=== PATIENT | female | born 1950 | race Asian ===

== ENCOUNTER 2023-08-08 16:52 | Inpatient (IN) | payer MEDICARE, OTHER ==
[~2023-08-08] VITALS: Ht 154.9 cm; Wt 77.1 kg
[2023-08-08 18:50] LABS: BASOPHILS # (AUTO) 0.1 K/uL (0.0-0.2); BASOPHILS % (AUTO) 0.8 % (0.0-2.0); EOSINOPHILS # (AUTO) 0.2 K/uL (0.0-0.7); EOSINOPHILS % (AUTO) 1.6 % (0.0-6.0); HEMATOCRIT 34 % (33-45); LYMPHOCYTES # (AUTO) 1.6 K/uL (0.8-4.8); LYMPHOCYTES % (AUTO) 16.5 % (20.0-44.0); MEAN CORPUSCULAR HEMOGLOBIN 28 PG (26.0-33.0); MEAN CORPUSCULAR HGB CONC 33 g/dl (31.0-36.0); MEAN CORPUSCULAR VOLUME 86 fL (82-100); MONOCYTES # (AUTO) 0.7 K/uL (0.1-1.30); MONOCYTES % (AUTO) 7.2 % (2.0-12.0); NEUTROPHILS # (AUTO) 7.3 K/uL (1.8-8.9); NEUTROPHILS % (AUTO) 73.9 % (43.0-81.0); PLATELET COUNT (AUTO) 344 K/uL (150-450); RED BLOOD CELL COUNT(AUTO) 3.92 MIL/uL (4.0-5.2); RED CELL DISTRIBUTION WIDTH 13.4 % (11.5-15.0); WHITE BLOOD COUNT (AUTO) 9.9 K/uL (4.3-11.0)
[2023-08-08 19:10] LABS: ALANINE AMINOTRANSFERASE 27 U/L (12-78); ALBUMIN 3.2 g/dL (3.4-5.0); ALKALINE PHOSPHATASE 83 U/L (46-116); ASPARTATE AMINOTRANSFERASE 27 U/L (15-37); BILIRUBIN,DIRECT 0.1 mg/dL (0.0-0.2); BILIRUBIN,TOTAL 0.3 mg/dL (0.2-1.0); CARBON DIOXIDE 27 mmol/L (21-32); CHLORIDE 102 mmol/L (98-107); CREATININE 2.1 mg/dL (0.6-1.3); GLUCOSE 114 mg/dL (74-106); POTASSIUM 4.5 mmol/L (3.5-5.1); SODIUM SERUM 137 mmol/L (136-145); TOTAL PROTEIN, SERUM 7.4 g/dL (6.4-8.2); UREA NITROGEN, BLOOD 38 mg/dL (7-18)
[2023-08-08 19:12] LABS: ACETAMINOPHEN 0 ug/ml (10-30); ALCOHOL, BLOOD < 3 mg/dL (0-10)
[2023-08-08 21:36] LABS: APPEARANCE,URINE SLIGHTLY CLOUDY (CLEAR); BILIRUBIN,URINE NEGATIVE (NEGATIVE); BLOOD, URINE TRACE-INTA Ery/uL (NEGATIVE); COLOR,URINE YELLOW (YELLOW); KETONES,URINE NEGATIVE (NEGATIVE); LEUKOCYTE ESTERASE ,URINE 3+ (NEGATIVE); NITRITE, URINE NEGATIVE (NEGATIVE); PROTEIN,URINE NEGATIVE (NEGATIVE); UGLUCOSE NEGATIVE (NEGATIVE); UROBILINOGEN,URINE 0.2 EU/dL (0.2)
[2023-08-08 21:54] LABS: AMPHETAMINE, URINE NEGATIVE (NEGATIVE); BARBITURATE, URINE NEGATIVE (NEGATIVE); BENZODIAZEPINE, URINE NEGATIVE (NEGATIVE); CANNABINOID, URINE NEGATIVE (NEGATIVE); COCCAINE, URINE NEGATIVE (NEGATIVE); OPIATE, URINE NEGATIVE (NEGATIVE); PHENCYCLIDINE SCREEN,URINE NEGATIVE (NEGATIVE)
[2023-08-08 21:59] LABS: ADD URINE CULTURE YES; BACTERIA,URINE 2+ /HPF (None Seen); WBC,URINE 21-50 /HPF (0-3)
[2023-08-09] MEDS ORDERED: ATOR20TA PO (00:52)
[2023-08-09] MEDS ORDERED: DONE10TA11 PO (00:52)
[2023-08-09] MEDS ORDERED: MAGN200T5 PO (00:52)
[2023-08-09] MEDS ORDERED: QUET100T PO (00:52)
[2023-08-09] MEDS ORDERED: AMLO5TAB4 PO (00:52)
[2023-08-09] MEDS ORDERED: LOSA50TA39 PO (00:52)
[2023-08-09] MEDS ORDERED: GLIP5TAB13 PO (00:52)
[2023-08-09] MEDS ORDERED: CLOP75TA15 PO (00:52)
[2023-08-09] MEDS ORDERED: METO-357 PO (00:52)
[2023-08-09] MEDS ORDERED: LORAZEPAM 0.5 MG TABLET PO PRN ×2 (01:00→10:30)
[2023-08-09] MEDS ORDERED: MAG HYDROX/AL HYDROX/SIMETH 30 ML UDC PO PRN (01:00)
[2023-08-09] MEDS ORDERED: MAGNESIUM HYDROXIDE 30 ML UDC PO PRN (01:00)
[2023-08-09] MEDS ORDERED: ZOLPIDEM TARTRATE 5 MG TABLET PO PRN (01:00)
[2023-08-09] MEDS ORDERED: BLOOD SUGAR DIAGNOSTIC 1 EACH STRIP IN ONE (01:00)
[2023-08-09 01:31] VITALS: BP 132/71; TEMP 99; O2SAT 99
[2023-08-09 07:36] LABS: CREATININE 1.9 mg/dL (0.6-1.3)
[2023-08-09 07:41] LABS: CHOLESTEROL 132 mg/dL (<200); HDL CHOLESTEROL 53 mg/dL (40-60); LDL 67 mg/dL (0-99); TRIGLYCERIDES 109 mg/dL (30-150)
[2023-08-09 08:00] VITALS: BP 119/55; TEMP 97.9; O2SAT 99
[2023-08-09] MEDS ORDERED: MULT-24 PO (08:18)
[2023-08-09] MEDS ORDERED: ACET-2605 PO (08:18)
[2023-08-09] MEDS ORDERED: ACET-868 PO (08:18)
[2023-08-09] MEDS ORDERED: LACT10SO3 PO (08:18)
[2023-08-09] MEDS ORDERED: GLUC1KIT IM (08:18)
[2023-08-09] MEDS: OLANZAPINE 5 MG TABLET PO SCH ×2 (10:30→16:14)
[2023-08-09] MEDS: DIVALPROEX SODIUM 125 MG CAP.SPRINK PO SCH ×2 (10:30→21:00)
[2023-08-09] MEDS: CEPHALEXIN MONOHYDRATE 250 MG CAPSULE PO SCH ×2 (12:46→21:00)
[2023-08-09] MEDS ORDERED: OLANZAPINE 10 MG VIAL IM STA (14:56)
[2023-08-09 16:00] VITALS: BP 138/75; TEMP 98.6; O2SAT 99
[2023-08-09] MEDS ORDERED: MAGNESIUM OXIDE 400 MG TABLET PO SCH (17:00)
[2023-08-09 20:38] VITALS: BP 129/69; TEMP 98.1; O2SAT 100
[2023-08-09] MEDS: DONEPEZIL 5 MG TABLET PO SCH (21:39)
[2023-08-09] MEDS: ATORVASTATIN 10 MG TABLET PO SCH (21:39)
[2023-08-10] MEDS: CEPHALEXIN MONOHYDRATE 250 MG CAPSULE PO SCH ×3 (05:00→20:46)
[2023-08-10 08:00] VITALS: BP 145/57; TEMP 97.8; O2SAT 97
[2023-08-10] MEDS ORDERED: DONEPEZIL 5 MG TABLET PO SCH (09:00)
[2023-08-10] MEDS: MULTIVITAMINS,THERAGRAN 1 UDTAB TABLET PO SCH (09:11)
[2023-08-10] MEDS: glipiZIDE 5 MG TABLET PO SCH (09:11)
[2023-08-10] MEDS: CLOPIDOGREL BISULFATE 75 MG TABLET PO SCH (09:11)
[2023-08-10] MEDS: DIVALPROEX SODIUM 125 MG CAP.SPRINK PO SCH ×2 (09:11→20:46)
[2023-08-10] MEDS: LACTULOSE 10 G/15 ML UDC (PYXIS) PO SCH (09:11)
[2023-08-10 09:12] VITALS: BP 114/62
[2023-08-10] MEDS: METOPROLOL SUCCINATE 50 MG TAB.SR.24H PO SCH (09:12)
[2023-08-10] MEDS: OLANZAPINE 5 MG TABLET PO SCH ×2 (09:12→16:28)
[2023-08-10] MEDS: AMLODIPINE BESYLATE 5 MG TABLET PO SCH (09:12)
[2023-08-10 16:00] VITALS: BP 140/68; TEMP 97.8; O2SAT 96
[2023-08-10 20:00] VITALS: BP 138/61; TEMP 97.5; O2SAT 97
[2023-08-10] MEDS: DONEPEZIL 5 MG TABLET PO SCH (21:16)
[2023-08-10] MEDS: ATORVASTATIN 10 MG TABLET PO SCH (21:17)
[2023-08-11] MEDS: CEPHALEXIN MONOHYDRATE 250 MG CAPSULE PO SCH ×3 (06:04→20:47)
[2023-08-11 08:00] VITALS: BP 125/63; TEMP 98; O2SAT 95
[2023-08-11] MEDS: LACTULOSE 10 G/15 ML UDC (PYXIS) PO SCH (09:11)
[2023-08-11] MEDS: CLOPIDOGREL BISULFATE 75 MG TABLET PO SCH (09:11)
[2023-08-11] MEDS: OLANZAPINE 5 MG TABLET PO SCH ×2 (09:11→17:15)
[2023-08-11] MEDS: glipiZIDE 5 MG TABLET PO SCH (09:11)
[2023-08-11] MEDS: METOPROLOL SUCCINATE 50 MG TAB.SR.24H PO SCH (09:13)
[2023-08-11] MEDS: DIVALPROEX SODIUM 125 MG CAP.SPRINK PO SCH ×2 (09:13→20:47)
[2023-08-11] MEDS: MULTIVITAMINS,THERAGRAN 1 UDTAB TABLET PO SCH (09:13)
[2023-08-11] MEDS: AMLODIPINE BESYLATE 5 MG TABLET PO SCH (09:14)
[2023-08-11 12:01] LABS: BASOPHILS % (AUTO) 0.5 % (0.0-2.0); EOSINOPHILS # (AUTO) 0.2 K/uL (0.0-0.7); EOSINOPHILS % (AUTO) 2.3 % (0.0-6.0); HEMATOCRIT 36 % (33-45); HEMOGLOBIN 11.9 g/dL (11.5-14.8); LYMPHOCYTES # (AUTO) 1.4 K/uL (0.8-4.8); LYMPHOCYTES % (AUTO) 18.1 % (20.0-44.0); MEAN CORPUSCULAR HEMOGLOBIN 28 PG (26.0-33.0); MEAN CORPUSCULAR HGB CONC 33 g/dl (31.0-36.0); MEAN CORPUSCULAR VOLUME 86 fL (82-100); MONOCYTES # (AUTO) 0.4 K/uL (0.1-1.30); NEUTROPHILS # (AUTO) 5.5 K/uL (1.8-8.9); NEUTROPHILS % (AUTO) 73.1 % (43.0-81.0); PLATELET COUNT (AUTO) 368 K/uL (150-450); RED BLOOD CELL COUNT(AUTO) 4.21 MIL/uL (4.0-5.2); RED CELL DISTRIBUTION WIDTH 12.9 % (11.5-15.0); WHITE BLOOD COUNT (AUTO) 7.5 K/uL (4.3-11.0)
[2023-08-11 12:07] LABS: ALANINE AMINOTRANSFERASE 18 U/L (12-78); ALBUMIN 3.3 g/dL (3.4-5.0); ALKALINE PHOSPHATASE 92 U/L (46-116); ASPARTATE AMINOTRANSFERASE 16 U/L (15-37); BILIRUBIN,TOTAL 0.4 mg/dL (0.2-1.0); CALCIUM, SERUM 8.9 mg/dL (8.5-10.1); CARBON DIOXIDE 26 mmol/L (21-32); CHLORIDE 102 mmol/L (98-107); CREATININE 1.8 mg/dL (0.6-1.3); GLUCOSE 124 mg/dL (74-106); MAGNESIUM 2.1 mg/dL (1.8-2.4); POTASSIUM 4.5 mmol/L (3.5-5.1); SODIUM SERUM 135 mmol/L (136-145); TOTAL PROTEIN, SERUM 7.8 g/dL (6.4-8.2); UREA NITROGEN, BLOOD 37 mg/dL (7-18)
[2023-08-11 12:08] LABS: CREATINE KINASE, TOTAL 128 U/L (26-192)
[2023-08-11 16:00] VITALS: BP_SYST 112; BP_SYST 155; BP_DIAS 65; BP_DIAS 67; TEMP 97.6; TEMP 98; O2SAT 97; O2SAT 99
[2023-08-11] MEDS: ATORVASTATIN 10 MG TABLET PO SCH (21:12)
[2023-08-11] MEDS: DONEPEZIL 5 MG TABLET PO SCH (21:13)
[2023-08-12] MEDS: CEPHALEXIN MONOHYDRATE 250 MG CAPSULE PO SCH ×3 (05:48→21:16)
[2023-08-12 06:06] LABS: PTH, INTACT 6 pg/mL (15-65)
[2023-08-12 08:00] VITALS: BP 145/67; TEMP 97.8; O2SAT 98
[2023-08-12] MEDS: MULTIVITAMINS,THERAGRAN 1 UDTAB TABLET PO SCH (09:07)
[2023-08-12] MEDS: DIVALPROEX SODIUM 125 MG CAP.SPRINK PO SCH ×2 (09:07→21:16)
[2023-08-12] MEDS: LACTULOSE 10 G/15 ML UDC (PYXIS) PO SCH (09:07)
[2023-08-12] MEDS: OLANZAPINE 5 MG TABLET PO SCH ×2 (09:07→17:04)
[2023-08-12] MEDS: glipiZIDE 5 MG TABLET PO SCH (09:07)
[2023-08-12] MEDS: METOPROLOL SUCCINATE 50 MG TAB.SR.24H PO SCH (09:08)
[2023-08-12] MEDS: CLOPIDOGREL BISULFATE 75 MG TABLET PO SCH (09:08)
[2023-08-12] MEDS: AMLODIPINE BESYLATE 5 MG TABLET PO SCH (09:08)
[2023-08-12 16:00] VITALS: BP 127/64; TEMP 98; O2SAT 100
[2023-08-12 20:12] VITALS: BP 132/56; TEMP 98.8; O2SAT 99
[2023-08-12] MEDS: ATORVASTATIN 10 MG TABLET PO SCH (21:17)
[2023-08-12] MEDS: DONEPEZIL 5 MG TABLET PO SCH (21:17)
[2023-08-13] MEDS: CEPHALEXIN MONOHYDRATE 250 MG CAPSULE PO SCH ×3 (05:17→20:19)
[2023-08-13 08:00] VITALS: BP 142/62; TEMP 97.8; O2SAT 100
[2023-08-13] MEDS: MULTIVITAMINS,THERAGRAN 1 UDTAB TABLET PO SCH (09:20)
[2023-08-13] MEDS: LACTULOSE 10 G/15 ML UDC (PYXIS) PO SCH (09:20)
[2023-08-13] MEDS: OLANZAPINE 5 MG TABLET PO SCH ×2 (09:20→17:24)
[2023-08-13] MEDS: DIVALPROEX SODIUM 125 MG CAP.SPRINK PO SCH ×2 (09:20→20:19)
[2023-08-13] MEDS: CLOPIDOGREL BISULFATE 75 MG TABLET PO SCH (09:20)
[2023-08-13] MEDS: glipiZIDE 5 MG TABLET PO SCH (09:20)
[2023-08-13] MEDS: AMLODIPINE BESYLATE 5 MG TABLET PO SCH (09:20)
[2023-08-13] MEDS: METOPROLOL SUCCINATE 50 MG TAB.SR.24H PO SCH (09:21)
[2023-08-13 16:00] VITALS: BP 145/68; TEMP 97.8; O2SAT 99
[2023-08-13 20:46] VITALS: BP 138/68; TEMP 97.9; O2SAT 97
[2023-08-13] MEDS: DONEPEZIL 5 MG TABLET PO SCH (21:26)
[2023-08-13] MEDS: ATORVASTATIN 10 MG TABLET PO SCH (21:26)
[2023-08-14] MEDS: CEPHALEXIN MONOHYDRATE 250 MG CAPSULE PO SCH ×2 (05:15→12:29)
[2023-08-14 08:00] VITALS: BP 137/58; TEMP 97.7; O2SAT 98
[2023-08-14] MEDS: glipiZIDE 5 MG TABLET PO SCH (09:11)
[2023-08-14] MEDS: OLANZAPINE 5 MG TABLET PO SCH ×2 (09:11→16:07)
[2023-08-14] MEDS: MULTIVITAMINS,THERAGRAN 1 UDTAB TABLET PO SCH (09:11)
[2023-08-14] MEDS: LACTULOSE 10 G/15 ML UDC (PYXIS) PO SCH (09:11)
[2023-08-14] MEDS: DIVALPROEX SODIUM 125 MG CAP.SPRINK PO SCH ×2 (09:11→20:21)
[2023-08-14] MEDS: CLOPIDOGREL BISULFATE 75 MG TABLET PO SCH (09:11)
[2023-08-14] MEDS: AMLODIPINE BESYLATE 5 MG TABLET PO SCH (09:12)
[2023-08-14] MEDS: METOPROLOL SUCCINATE 50 MG TAB.SR.24H PO SCH (09:12)
[2023-08-14 11:06] LABS: *SPE A/G RATIO 0.8 (0.7-1.7); *SPE ALBUMIN 3.3 g/dL (2.9-4.4); *SPE ALPHA-1-GLOBULIN 0.2 g/dL (0.0-0.4); *SPE ALPHA-2-GLOBULIN 0.9 g/dL (0.4-1.0); *SPE GLOBULIN, TOTAL 3.9 g/dL (2.2-3.9); *SPE M-SPIKE Not Observed g/dL (Not Observed); *SPE PROTEIN TOTAL 7.2 g/dL (6.0-8.5); *SPEGAMMA GLOBULIN 1.8 g/dL (0.4-1.8)
[2023-08-14 16:00] VITALS: BP 108/55; TEMP 97.7; O2SAT 99
[2023-08-14] MEDS: ACETAMINOPHEN 325 MG TABLET PO PRN (16:39)
[2023-08-14] MEDS ORDERED: GUAIFENESIN/D-METHORPHAN HB 5 ML UDC PO PRN (17:30)
[2023-08-14 20:45] VITALS: BP 111/54; TEMP 98.4; O2SAT 99
[2023-08-14] MEDS: DONEPEZIL 5 MG TABLET PO SCH (21:41)
[2023-08-14] MEDS: ATORVASTATIN 10 MG TABLET PO SCH (21:41)
[2023-08-15 07:40] LABS: HEMOGLOBIN 11.8 g/dL (11.5-14.8); WHITE BLOOD COUNT (AUTO) 8.5 K/uL (4.3-11.0)
[2023-08-15 07:41] LABS: BASOPHILS % (AUTO) 0.5 % (0.0-2.0); EOSINOPHILS # (AUTO) 0.4 K/uL (0.0-0.7); EOSINOPHILS % (AUTO) 4.5 % (0.0-6.0); HEMATOCRIT 36 % (33-45); LYMPHOCYTES # (AUTO) 1.4 K/uL (0.8-4.8); LYMPHOCYTES % (AUTO) 16.9 % (20.0-44.0); MEAN CORPUSCULAR HEMOGLOBIN 28 PG (26.0-33.0); MEAN CORPUSCULAR HGB CONC 33 g/dl (31.0-36.0); MEAN CORPUSCULAR VOLUME 86 fL (82-100); MONOCYTES # (AUTO) 0.8 K/uL (0.1-1.30); NEUTROPHILS # (AUTO) 5.9 K/uL (1.8-8.9); NEUTROPHILS % (AUTO) 69.1 % (43.0-81.0); PLATELET COUNT (AUTO) 342 K/uL (150-450); RED CELL DISTRIBUTION WIDTH 13.1 % (11.5-15.0)
[2023-08-15 07:58] LABS: CALCIUM, SERUM 8.7 mg/dL (8.5-10.1); CARBON DIOXIDE 26 mmol/L (21-32); CHLORIDE 103 mmol/L (98-107); CREATININE 1.9 mg/dL (0.6-1.3); GLUCOSE 105 mg/dL (74-106); MAGNESIUM 2.3 mg/dL (1.8-2.4); PHOSPHORUS 3.9 mg/dL (2.5-4.9); POTASSIUM 4.3 mmol/L (3.5-5.1); SODIUM SERUM 138 mmol/L (136-145); UREA NITROGEN, BLOOD 43 mg/dL (7-18)
[2023-08-15 08:00] VITALS: BP 117/59; TEMP 97.7; O2SAT 100
[2023-08-15] MEDS: LACTULOSE 10 G/15 ML UDC (PYXIS) PO SCH (09:03)
[2023-08-15] MEDS: OLANZAPINE 5 MG TABLET PO SCH ×2 (09:03→17:21)
[2023-08-15] MEDS: DIVALPROEX SODIUM 125 MG CAP.SPRINK PO SCH ×2 (09:03→21:40)
[2023-08-15] MEDS: CLOPIDOGREL BISULFATE 75 MG TABLET PO SCH (09:04)
[2023-08-15] MEDS: glipiZIDE 5 MG TABLET PO SCH (09:04)
[2023-08-15] MEDS: AMLODIPINE BESYLATE 5 MG TABLET PO SCH (09:04)
[2023-08-15] MEDS: METOPROLOL SUCCINATE 50 MG TAB.SR.24H PO SCH (09:05)
[2023-08-15] MEDS: MULTIVITAMINS,THERAGRAN 1 UDTAB TABLET PO SCH (09:06)
[2023-08-15 16:08] VITALS: BP 113/56; TEMP 97.7; O2SAT 99
[2023-08-15 21:36] VITALS: BP 128/56; TEMP 99.1; O2SAT 98
[2023-08-15] MEDS: DONEPEZIL 5 MG TABLET PO SCH (21:40)
[2023-08-15] MEDS: ATORVASTATIN 10 MG TABLET PO SCH (21:40)
[2023-08-16 08:00] VITALS: BP 118/56; TEMP 97.9; O2SAT 100
[2023-08-16] MEDS: CLOPIDOGREL BISULFATE 75 MG TABLET PO SCH (10:10)
[2023-08-16] MEDS: LACTULOSE 10 G/15 ML UDC (PYXIS) PO SCH (10:10)
[2023-08-16] MEDS: glipiZIDE 5 MG TABLET PO SCH (10:11)
[2023-08-16] MEDS: MULTIVITAMINS,THERAGRAN 1 UDTAB TABLET PO SCH (10:11)
[2023-08-16] MEDS: DIVALPROEX SODIUM 125 MG CAP.SPRINK PO SCH ×2 (10:12→21:10)
[2023-08-16] MEDS: AMLODIPINE BESYLATE 5 MG TABLET PO SCH (10:12)
[2023-08-16] MEDS: OLANZAPINE 5 MG TABLET PO SCH ×2 (10:12→17:40)
[2023-08-16] MEDS: METOPROLOL SUCCINATE 50 MG TAB.SR.24H PO SCH (10:12)
[2023-08-16 16:00] VITALS: BP 107/61; TEMP 98.7; O2SAT 100
[2023-08-16 20:27] VITALS: BP 112/65; TEMP 98.1; O2SAT 96
[2023-08-16] MEDS: DONEPEZIL 5 MG TABLET PO SCH (21:09)
[2023-08-16] MEDS: ATORVASTATIN 10 MG TABLET PO SCH (21:10)
[2023-08-16] MEDS: ACETAMINOPHEN 325 MG TABLET PO PRN (21:22)
[2023-08-17 08:00] VITALS: BP 130/60; TEMP 97.9; O2SAT 98
[2023-08-17] MEDS: LACTULOSE 10 G/15 ML UDC (PYXIS) PO SCH (08:56)
[2023-08-17] MEDS: DIVALPROEX SODIUM 125 MG CAP.SPRINK PO SCH ×2 (08:56→21:06)
[2023-08-17] MEDS: CLOPIDOGREL BISULFATE 75 MG TABLET PO SCH (08:56)
[2023-08-17] MEDS: glipiZIDE 5 MG TABLET PO SCH (08:56)
[2023-08-17] MEDS: MULTIVITAMINS,THERAGRAN 1 UDTAB TABLET PO SCH (08:56)
[2023-08-17] MEDS: OLANZAPINE 5 MG TABLET PO SCH ×2 (08:56→16:40)
[2023-08-17] MEDS: AMLODIPINE BESYLATE 5 MG TABLET PO SCH (08:57)
[2023-08-17] MEDS: METOPROLOL SUCCINATE 50 MG TAB.SR.24H PO SCH (08:57)
[2023-08-17 16:00] VITALS: BP 128/61; TEMP 97.9; O2SAT 96
[2023-08-17 20:00] VITALS: BP 125/74; TEMP 98.4; O2SAT 99
[2023-08-17] MEDS: NITROFURANTOIN/MONOHYDRATE MACROCRYSTALS 100 MG CAPSULE PO SCH (21:05)
[2023-08-17 22:00] VITALS: BP 125/74
[2023-08-17] MEDS: ATORVASTATIN 10 MG TABLET PO SCH (22:00)
[2023-08-17] MEDS: DONEPEZIL 5 MG TABLET PO SCH (22:00)
[2023-08-18 07:14] LABS: BASOPHILS % (AUTO) 0.7 % (0.0-2.0); EOSINOPHILS # (AUTO) 0.3 K/uL (0.0-0.7); EOSINOPHILS % (AUTO) 5.4 % (0.0-6.0); HEMATOCRIT 34 % (33-45); HEMOGLOBIN 11.1 g/dL (11.5-14.8); LYMPHOCYTES # (AUTO) 1.6 K/uL (0.8-4.8); LYMPHOCYTES % (AUTO) 25.4 % (20.0-44.0); MEAN CORPUSCULAR HEMOGLOBIN 28 PG (26.0-33.0); MEAN CORPUSCULAR HGB CONC 33 g/dl (31.0-36.0); MEAN CORPUSCULAR VOLUME 86 fL (82-100); MONOCYTES # (AUTO) 0.5 K/uL (0.1-1.30); MONOCYTES % (AUTO) 7.7 % (2.0-12.0); NEUTROPHILS # (AUTO) 3.8 K/uL (1.8-8.9); NEUTROPHILS % (AUTO) 60.8 % (43.0-81.0); PLATELET COUNT (AUTO) 336 K/uL (150-450); RED BLOOD CELL COUNT(AUTO) 3.92 MIL/uL (4.0-5.2); WHITE BLOOD COUNT (AUTO) 6.2 K/uL (4.3-11.0)
[2023-08-18 07:32] LABS: ALANINE AMINOTRANSFERASE 19 U/L (12-78); ALKALINE PHOSPHATASE 76 U/L (46-116); ASPARTATE AMINOTRANSFERASE 14 U/L (15-37); BILIRUBIN,TOTAL 0.3 mg/dL (0.2-1.0); CALCIUM, SERUM 8.7 mg/dL (8.5-10.1); CARBON DIOXIDE 26 mmol/L (21-32); CHLORIDE 106 mmol/L (98-107); CREATININE 1.9 mg/dL (0.6-1.3); GLUCOSE 107 mg/dL (74-106); MAGNESIUM 2.2 mg/dL (1.8-2.4); PHOSPHORUS 3.5 mg/dL (2.5-4.9); SODIUM SERUM 141 mmol/L (136-145); TOTAL PROTEIN, SERUM 7.4 g/dL (6.4-8.2); UREA NITROGEN, BLOOD 39 mg/dL (7-18)
[2023-08-18 08:00] VITALS: BP 135/66; TEMP 97.7; O2SAT 96
[2023-08-18] MEDS: MULTIVITAMINS,THERAGRAN 1 UDTAB TABLET PO SCH (08:47)
[2023-08-18] MEDS: OLANZAPINE 5 MG TABLET PO SCH ×2 (08:47→16:29)
[2023-08-18] MEDS: DIVALPROEX SODIUM 125 MG CAP.SPRINK PO SCH ×2 (08:47→21:32)
[2023-08-18] MEDS: LACTULOSE 10 G/15 ML UDC (PYXIS) PO SCH (08:47)
[2023-08-18] MEDS: glipiZIDE 5 MG TABLET PO SCH (08:47)
[2023-08-18] MEDS: NITROFURANTOIN/MONOHYDRATE MACROCRYSTALS 100 MG CAPSULE PO SCH ×2 (08:48→21:32)
[2023-08-18] MEDS: CLOPIDOGREL BISULFATE 75 MG TABLET PO SCH (08:48)
[2023-08-18] MEDS: AMLODIPINE BESYLATE 5 MG TABLET PO SCH (08:50)
[2023-08-18] MEDS: METOPROLOL SUCCINATE 50 MG TAB.SR.24H PO SCH (08:50)
[2023-08-18] MEDS ORDERED: AMOX/CLAVULANATE 250 MG TABLET PO SCH (09:00)
[2023-08-18 16:00] VITALS: BP 132/64; TEMP 98.1; O2SAT 100
[2023-08-18 20:00] VITALS: BP 130/76; TEMP 98; O2SAT 99
[2023-08-18 22:00] VITALS: BP 130/76
[2023-08-18] MEDS: DONEPEZIL 5 MG TABLET PO SCH (22:37)
[2023-08-18] MEDS: ATORVASTATIN 10 MG TABLET PO SCH (22:37)
[2023-08-19 08:00] VITALS: BP 131/81; TEMP 97.6; O2SAT 96
[2023-08-19] MEDS: LACTULOSE 10 G/15 ML UDC (PYXIS) PO SCH (08:49)
[2023-08-19] MEDS: glipiZIDE 5 MG TABLET PO SCH (08:49)
[2023-08-19] MEDS: NITROFURANTOIN/MONOHYDRATE MACROCRYSTALS 100 MG CAPSULE PO SCH ×2 (08:50→21:28)
[2023-08-19] MEDS: MULTIVITAMINS,THERAGRAN 1 UDTAB TABLET PO SCH (08:50)
[2023-08-19] MEDS: OLANZAPINE 5 MG TABLET PO SCH ×2 (08:50→16:36)
[2023-08-19] MEDS: CLOPIDOGREL BISULFATE 75 MG TABLET PO SCH (08:50)
[2023-08-19] MEDS: AMLODIPINE BESYLATE 5 MG TABLET PO SCH (08:50)
[2023-08-19] MEDS: METOPROLOL SUCCINATE 50 MG TAB.SR.24H PO SCH (08:50)
[2023-08-19] MEDS: DIVALPROEX SODIUM 125 MG CAP.SPRINK PO SCH ×2 (08:50→21:22)
[2023-08-19 16:00] VITALS: BP 107/52; TEMP 98.6; O2SAT 95
[2023-08-19 20:00] VITALS: BP 128/79; TEMP 98.1; O2SAT 97
[2023-08-19] MEDS: ATORVASTATIN 10 MG TABLET PO SCH (21:22)
[2023-08-19] MEDS: DONEPEZIL 5 MG TABLET PO SCH (21:22)
[2023-08-20 08:00] VITALS: BP 156/73; TEMP 98.4; O2SAT 99
[2023-08-20] MEDS: glipiZIDE 5 MG TABLET PO SCH (08:53)
[2023-08-20] MEDS: OLANZAPINE 5 MG TABLET PO SCH ×2 (08:54→16:00)
[2023-08-20] MEDS: CLOPIDOGREL BISULFATE 75 MG TABLET PO SCH (08:54)
[2023-08-20] MEDS: MULTIVITAMINS,THERAGRAN 1 UDTAB TABLET PO SCH (08:54)
[2023-08-20] MEDS: NITROFURANTOIN/MONOHYDRATE MACROCRYSTALS 100 MG CAPSULE PO SCH ×2 (08:54→20:58)
[2023-08-20] MEDS: METOPROLOL SUCCINATE 50 MG TAB.SR.24H PO SCH (08:54)
[2023-08-20] MEDS: LACTULOSE 10 G/15 ML UDC (PYXIS) PO SCH (08:54)
[2023-08-20] MEDS: DIVALPROEX SODIUM 125 MG CAP.SPRINK PO SCH ×2 (08:54→20:58)
[2023-08-20] MEDS: AMLODIPINE BESYLATE 5 MG TABLET PO SCH (08:55)
[2023-08-20 16:00] VITALS: BP 108/60; TEMP 98.2; O2SAT 98
[2023-08-20 20:34] VITALS: BP 149/71; TEMP 98; O2SAT 98
[2023-08-20] MEDS: ATORVASTATIN 10 MG TABLET PO SCH (21:00)
[2023-08-20] MEDS: DONEPEZIL 5 MG TABLET PO SCH (21:00)
[2023-08-21 08:00] VITALS: BP 137/77; TEMP 98; O2SAT 99
[2023-08-21] MEDS: LACTULOSE 10 G/15 ML UDC (PYXIS) PO SCH (08:42)
[2023-08-21] MEDS: OLANZAPINE 5 MG TABLET PO SCH ×2 (08:42→16:11)
[2023-08-21] MEDS: NITROFURANTOIN/MONOHYDRATE MACROCRYSTALS 100 MG CAPSULE PO SCH ×2 (08:42→20:56)
[2023-08-21] MEDS: CLOPIDOGREL BISULFATE 75 MG TABLET PO SCH (08:43)
[2023-08-21] MEDS: MULTIVITAMINS,THERAGRAN 1 UDTAB TABLET PO SCH (08:43)
[2023-08-21] MEDS: METOPROLOL SUCCINATE 50 MG TAB.SR.24H PO SCH (08:43)
[2023-08-21] MEDS: glipiZIDE 5 MG TABLET PO SCH (08:44)
[2023-08-21] MEDS: DIVALPROEX SODIUM 125 MG CAP.SPRINK PO SCH ×2 (08:44→20:56)
[2023-08-21] MEDS: AMLODIPINE BESYLATE 5 MG TABLET PO SCH (08:44)
[2023-08-21 16:00] VITALS: BP 120/50; TEMP 97.7; O2SAT 100
[2023-08-21 20:28] VITALS: BP 107/96; TEMP 98.2; O2SAT 99
[2023-08-21] MEDS: DONEPEZIL 5 MG TABLET PO SCH (21:03)
[2023-08-21] MEDS: ATORVASTATIN 10 MG TABLET PO SCH (21:03)
[2023-08-22 08:00] VITALS: BP 146/80; TEMP 97.6; O2SAT 100
[2023-08-22] MEDS: AMLODIPINE BESYLATE 5 MG TABLET PO SCH (08:21)
[2023-08-22] MEDS: glipiZIDE 5 MG TABLET PO SCH (08:21)
[2023-08-22] MEDS: MULTIVITAMINS,THERAGRAN 1 UDTAB TABLET PO SCH (08:21)
[2023-08-22] MEDS: OLANZAPINE 5 MG TABLET PO SCH (08:21)
[2023-08-22 08:22] VITALS: BP 146/80
[2023-08-22] MEDS: LACTULOSE 10 G/15 ML UDC (PYXIS) PO SCH (08:22)
[2023-08-22] MEDS: DIVALPROEX SODIUM 125 MG CAP.SPRINK PO SCH (08:22)
[2023-08-22] MEDS: METOPROLOL SUCCINATE 50 MG TAB.SR.24H PO SCH (08:22)
[2023-08-22] MEDS: CLOPIDOGREL BISULFATE 75 MG TABLET PO SCH (08:22)
[2023-08-22] MEDS: NITROFURANTOIN/MONOHYDRATE MACROCRYSTALS 100 MG CAPSULE PO SCH (08:22)
== END 2023-08-22 13:15 | DRG 885 ==
LOC: ER 16:52 → GPS 23:35
PROVIDERS: ADMIT Psychiatry & Neurology Psychiatry; ATTEND Nurse Practitioner Family
DX: F25.0 Schizoaffective disorder, bipolar type (principal); F01.518 Vascular dementia, unspecified severity, with other behavioral disturbance; N18.9 Chronic kidney disease, unspecified; N17.9 Acute kidney failure, unspecified; E44.1 Mild protein-calorie malnutrition; N39.0 Urinary tract infection, site not specified; F29 Unspecified psychosis not due to a substance or known physiological condition; I12.9 Hypertensive chronic kidney disease with stage 1 through stage 4 chronic kidney disease, or unspecified chronic kidney disease; E11.22 Type 2 diabetes mellitus with diabetic chronic kidney disease; E88.09 Other disorders of plasma-protein metabolism, not elsewhere classified; N18.30 Chronic kidney disease, stage 3 unspecified; Z91.199 Patient's noncompliance with other medical treatment and regimen due to unspecified reason; Z20.822 Contact with and (suspected) exposure to COVID-19; Z73.6 Limitation of activities due to disability; D63.8 Anemia in other chronic diseases classified elsewhere; Z68.32 Body mass index [BMI] 32.0-32.9, adult; B96.20 Unspecified Escherichia coli [E. coli] as the cause of diseases classified elsewhere; E86.0 Dehydration; Z79.84 Long term (current) use of oral hypoglycemic drugs
CPT/HCPCS: 36415; 71045-TC; 80048-TC; 80053-TC; 80061-TC; 80076-TC; 80164-TC; 81001; 82550-TC; 82565-TC; 82962-TC; 83735-TC; 83970; 84100-TC; 84155; 84165; 85025-TC; 87081-TC; 87086-TC; C9803; G0480; J3490